=== PATIENT | female | born 1940 | race Caucasian/White ===

== ENCOUNTER 2022-03-10 05:15 | Day surgery (SDC) | payer MEDICARE, BC ==
[2022-03-07 12:43] LABS: BASOPHILS % (AUTO) 0.5 % (0-1); LYMPHOCYTES # (AUTO) 1.1 X10'3 (1.1-4.8); LYMPHOCYTES % (AUTO) 28.7 % (21-51); MEAN CORPUSCULAR HEMOGLOBIN 31.5 PG (27.0-31.0); MEAN CORPUSCULAR HGB CONC 33.4 g/dL (33.0-36.5); MEAN CORPUSCULAR VOLUME 94.3 FL (78-98); MEAN PLATELET VOLUME 9.9 FL (7.4-10.4); MONOCYTES # (AUTO) 0.6 X10'3 (0-0.9); MONOCYTES % (AUTO) 15.9 % (2-12); NEUTROPHILS # (AUTO) 2.1 X10'3 (1.8-7.7); NEUTROPHILS % (AUTO) 53.9 % (42-75); PRE OP HEMOGLOBIN 13.3 g/dL (12.0-16.0); PRE OP PLATELET COUNT 182 X10'3 (140-440); RED BLOOD COUNT 4.24 X10'6 (4.20-5.60); RED CELL DISTRIBUTION WIDTH 13.3 % (11.5-14.5)
[2022-03-07 13:15] LABS: ALBUMIN 4.1 G/DL (3.4-5.0); ALBUMIN/GLOBULIN RATIO 1.5 (1.1-1.5); ALKALINE PHOSPHATASE 66 IU/L (46-116); BLOOD UREA NITROGEN 15 MG/DL (7-18); BUN/CREATININE RATIO 21.1 (6.6-38.0); CHLORIDE 102 MMOL/L (99-107); CREATININE 0.71 MG/DL (0.40-0.90); PRE OP ALT 27 U/L (30-65); PRE OP ANION GAP 6 (8-16); PRE OP AST 22 U/L (10-37); PRE OP BILIRUB, TOTAL 1.3 MG/DL (0.0-1.0); PRE OP GLUCOSE 105 MG/DL (70-104); PRE OP POTASSIUM 3.9 MMOL/L (3.4-5.1); PRE OP SODIUM 138 MMOL/L (135-145); TOTAL CARBON DIOXIDE 29.7 MMOL/L (24-32); TOTAL PROTEIN 6.8 G/DL (6.4-8.2); eGFR 79 ML/MIN
[~2022-03-10] VITALS: Ht 162.6 cm; Wt 65.3 kg
[~2022-03-10 05:15] MED LIST: CALC-627 PO; GALA16CA PO; TRIA16.922 BOTHNARES; ringers solution, lacted 1,000 ML IV SCH
[2022-03-10] MEDS ORDERED: ceFAZolin inj. 2,000 MG in dextrose 5%-water 100 ML IV ONE (05:30)
[2022-03-10] MEDS ORDERED: famotidine 20mg tablet PO ONE (05:30)
[2022-03-10] MEDS ORDERED: BUPIVAcaine/PF 5 mg/ml 10ml ONE ×2 (06:42→06:47)
[2022-03-10] MEDS ORDERED: scopolamine 1mg/72 hr patch TD ONE (07:20)
[2022-03-10] MEDS ORDERED: midazolam 1 mg/ML 2ml injection ONE (07:22)
[2022-03-10] MEDS ORDERED: LIDOcaine 0.5% (5mg/ml) 50ml vial ONE (07:23)
[2022-03-10] MEDS ORDERED: HYDROmorphone/PF 0.2 MG/ML SYRINGE IV PRN ×2 (07:30)
[2022-03-10] MEDS ORDERED: ondansetron/PF 4mg/2ml inj IV PRN (07:30)
[2022-03-10] MEDS ORDERED: ringers solution, lacted 1,000 ML IV SCH (07:30)
[2022-03-10] MEDS ORDERED: meperidine/PF 25mg/ml syringe IV PRN (07:30)
[2022-03-10] MEDS ORDERED: propofol inj 20 ML IV ONE (08:06)
[2022-03-10 08:07] VITALS: BP 118/63
--- NOTE | 2022-03-10 08:07 | NUR ---
Received from OR via , accompanied by Anesthesiologist CATHIE AND OR NURSE and report given by Anesthesiolgist. PT IS DROWSY YET REPONDS TO VERBAL STIMULI. LEFT HAND COLD TO TOUCH, FINGER TIPS BLUE, DIFFICULT TO PALPATE PULSE. WITHIN A FEW MINUTES COLOR RETURNED AND PULSE PALPABLE AND TEMP WARM TO TOUCH. PT DENIES PAIN OR DISCOMFORT. VSS Addendum: 03/10/22 at 0909 by Nathalia Bennett RN Amended: Links added.
[2022-03-10 08:20] VITALS: BP 117/63
--- NOTE | 2022-03-10 08:47 | NUR ---
ALL DISCHARGE CRITERIA HAS BEEN MET. VSS, PAIN AT A TOLERABLE LEVEL, VOIDING AND ABLE TO SAFELY AMBULATE AND TRANSFER SELF. IV TAKEN OUT WITHOUT ANY COMPLICATIONS. ALL DISCHARGE INSTRUCTIONS COVERED WITH PATIENT AND ALL QUESTIONS ANSWERED. PATIENT TAKEN OUT VIA WHEELCHAIR TO PERSONAL VEHICLE WHERE FAMILY/FRIEND DROVE PATIENT HOME. Addendum: 03/10/22 at 0915 by Nathalia Bennett RN Amended: Links added.
[2022-03-10 09:52] VITALS: BP 133/73
[2022-03-10 09:55] VITALS: BP 133/73
== END 2022-03-10 08:47 | disposition home or self-care (01) ==
LOC: PAS 05:15
PROVIDERS: ATTEND Orthopaedic Surgery Hand Surgery
DX: G56.02 Carpal tunnel syndrome, left upper limb (principal); M65.331 Trigger finger, right middle finger; Z79.899 Other long term (current) drug therapy; Z88.6 Allergy status to analgesic agent; Z88.2 Allergy status to sulfonamides; Z98.890 Other specified postprocedural states; M17.0 Bilateral primary osteoarthritis of knee
CPT/HCPCS: 26055; 64721; 80053; 82948; 85025; 93005; J0690; J2250; J2704; J3490; J7030; J7060; J7120; Z7506; Z7512; A4215; A6449